=== PATIENT | male | born 1980 | race Caucasian/White ===

== ENCOUNTER → 2017-04-26 | Outpatient (CLI) | payer BC ==
[~2017-04-26] MED LIST: XANAX1 MG PO
--- NOTE | ~2017-04-26 | CR230 ---
[facility] A Service of [facility] & [facility] RADIOLOGY TEXT RESULTS PATIENT: TAMMY VALDIVIA LOCATION: [facility] : 82 UNIT #: [id number] AGE: [address]: MICHELLE RANDOLPH APRN SEX: M ORDER DR: [id number] [facility] [address] [place], [place] [address] [id number] O MR#: [id number] Acc #: [id number] NAME: TAMMY VALDIVIA : 1980 SEX: M STUDY DATE/TIME: 04/26/2017 13:36 UNIT: [facility] ROOM: STUDY DESCRIPTION: CR Shoulder Min 2 View Rt Attending Physician: Michelle Randolph Aprn Referring Physician: Michelle Randolph Aprn Ordering Physician: Michelle Randolph Aprn Primary Care Physician: Michelle Randolph Aprn MEDICAL IMAGING REPORT This report is preliminary unless electronic signature is present EXAM Right shoulder, 3 views, 04/26/2017. HISTORY Right shoulder pain with decreased range of motion for 2 weeks. No known injury. FINDINGS AP view with internal and external rotation of the shoulder girdle shows satisfactory relationship of the humeral head and glenoid fossa. The joint space is normal. There is no identifiable fracture or dislocation or bony destructive process about the shoulder girdle anatomy. The acromioclavicular joint is normal. There is no radiopaque foreign body in the region. IMPRESSION Normal shoulder. Dictated by... Goldy Elias M.D. THIS IS AN ELECTRONICALLY VERIFIED REPORT Goldy Elias M.D. at 04/27/2017 8:10 AM CHRISTINA/kristy TD: 04/26/2017 17:03 JOB #: [id number] MEDICAL IMAGING REPORT Page 1 of 1 COPY
== END | disposition home or self-care (01) ==
LOC: CRAD 13:28
DX: M25.511 Pain in right shoulder (principal)
CPT/HCPCS: 73030